=== PATIENT | female | born 1990 | race African-American/Black ===

== ENCOUNTER 2021-06-20 13:35 | Outpatient (CLI) | payer OTHER, SELFPAY ==
--- NOTE | ~2021-06-20 | US_ITS ---
EXAMINATION: US pelvic complete w TV DATE: 06/20/2021 14:33 INDICATION: Irregular menstruation, unspecified. TECHNIQUE: Multiple transabdominal and transvaginal sonographic images of the pelvis were obtained. COMPARISON: None. FINDINGS: TRANSABDOMINAL ULTRASOUND: The uterus measures 7.6 x 4.0 x 3.5 cm. There is no free fluid in the pelvis. TRANSVAGINAL ULTRASOUND: The endometrial complex measures 6 mm in thickness. The right ovary measures 2.8 x 3.8 x 2.7 cm. The left ovary measures 6.1 x 2.6 x 3.0 cm. There is normal vascular flow in the ovaries. IMPRESSION: 1. Enlargement of left ovary of uncertain significance. Reviewed, dictated and finalized at location [facility]. [facility]
== END 2021-06-20 13:36 | disposition home or self-care (01) ==
PROVIDERS: PCP Emergency Medicine; Visit Provider Student in an Organized Health Care Education/Training Program
DX: E28.2 Polycystic ovarian syndrome (principal); N92.6 Irregular menstruation, unspecified; N83.8 Other noninflammatory disorders of ovary, fallopian tube and broad ligament
CPT/HCPCS: 76830; 76856

== ENCOUNTER 2024-09-02 12:32 | Emergency (ER) | payer BC, SELFPAY ==
[2024-09-02 12:54] VITALS: BP 102/82; PULSE 88; RESP 16; TEMP 36.8; O2SAT 100
[2024-09-02 12:56] LABS: EDSTREPNEGPOS1 Negative (Negative)
[2024-09-02 12:58] LABS: EDINFLUASCREEN Negative (Negative); EDINFLUBSCREEN Negative (Negative)
[2024-09-02 12:59] LABS: EDCOVIDSCREEN Negative (Negative)
--- NOTE | 2024-09-02 13:08 | ED_ITS ---
HPI - General Adult General Chief complaint: Upper Respiratory Infection Stated complaint: Flu Symptoms Source: patient Mode of arrival: ambulatory Limitations: no limitations History of Present Illness HPI narrative: PATIENT PRESENTS FOR EVALUATION OF SICK SYMPTOMS. SYMPTOM ONSET 3 DAYS AGO. SYMPTOMS INCLUDE FEVER, COUGH, SINUS CONGESTION, NASAL DRAINAGE, SORE THROAT, BODY ACHES AND GENERALLY NOT FEELING WELL. SHE DENIES ANY SHORTNESS OF, NAUSEA, OR DIARRHEA. SHE HAS HAD A FEW EPISODES OF VOMITING DURING COUGHING EPISODES. 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 SHE TRIED TAKING MUCINEX COLD AND SINUS FOR HER SYMPTOMS. SHE DOES NOT SMOKE. Related Data Home Medications ?Medication ?Instructions ?Recorded ?Confirmed ?Last Taken ?Type irbesartan 75 mg tablet 75 mg PO DAILY 06/13/21 Unknown History tirzepatide 2.5 mg/0.5 mL 2.5 mg subcut WEEKLY 09/02/24 09/02/24 Unknown History subcutaneous pen injector (Mounjaro) Allergies Allergy/AdvReac Type Severity Reaction Status Date / Time No Known Allergies Allergy Verified 09/02/24 12:39 Review of Systems Review of Systems: CONSTITUTIONAL: REPORTS FEVER. DENIES CHILLS, OR SWEATS. EYES: DENIES VISUAL CHANGES, REDNESS, OR DISCHARGE. ENT: REPORTS SINUS CONGESTION, POSTNASAL DRAINAGE, SORE THROAT AND BILATERAL OTALGIA CARDIOVASCULAR: DENIES CHEST PAIN, PALPITATIONS, OR EDEMA. RESPIRATORY: REPORTS COUGH. DENIES SHORTNESS OF GASTROINTESTINAL: REPORTS A FEW EPISODES OF VOMITING DURING COUGHING EPISODES. DENIES ABDOMINAL PAIN, NAUSEA, OR DIARRHEA. GENITOURINARY: DENIES DYSURIA OR HEMATURIA. SKIN: DENIES RASH OR ITCHING. MUSCULOSKELETAL: REPORTS GENERALIZED BODY ACHES NEUROLOGIC: DENIES HEADACHE, NUMBNESS, DIZZINESS, OR WEAKNESS. PSYCHIATRIC: DENIES ANXIETY OR DEPRESSION. [facility] Past Medical History Medical History HSV (herpes simplex virus) anogenital infection Depression with anxiety Hyperlipidemia Type II diabetes mellitus Surgical History Surgical History No pertinent past surgical history Family History Family History Mother Alcoholism Hypertension Depression Grandparent Diabetes mellitus Hypertension Social History Social History Smoking status: Never smoker Alcohol intake: current Substance use: never Lack of Transportation: No Lack of Food: Never True Current Housing: I Have Housing Concerned About Future Housing: No Difficulty Paying Gas/Electric Bills: No Difficulty Paying for Meds: No Currently Unemployed: No Education: Associate Degree Living arrangements: alone Occupation/Education: occupation Gender identity (if verbalized by the patient): Female Sexual Orientation (if Verbalized by the Patient): Lesbian, Gray, or Homosexual Exam Narrative: GENERAL: WELL-APPEARING, WELL-NOURISHED, AND IN NO ACUTE DISTRESS. HEAD: NORMOCEPHALIC, ATRAUMATIC. EYES: PERRLA AND EOMI. ENT: NARES CLEAR, NO RHINORRHEA OR EPISTAXIS. MUCOUS MEMBRANES MOIST. OROPHARYNX WITHOUT TONSILLAR HYPERTROPHY EXUDATE OR OTHER LESIONS. BILATERAL TMS PEARLY RANKIN NONBULGING NECK: SUPPLE. NO ADENOPATHY OR MASSES. NO CAROTID BRUITS OR JVD CHEST: CLEAR TO AUSCULTATION. NO RESPIRATORY DISTRESS. NO WHEEZES RALES OR RHONCHI HEART: REGULAR RATE AND RHYTHM. NO MURMUR HEARD. NORMAL PERIPHERAL PULSES. ABDOMEN: SOFT, NONTENDER, NONDISTENDED, NORMAL ACTIVE BOWEL SOUNDS. EXTREMITIES: NORMAL RANGE OF MOTION. NO EDEMA. SKIN: WARM, DRY, NO RASH. NEURO: NO FOCAL DEFICITS. ALERT AND ORIENTED X3. PSYCH: NORMAL MOOD AND AFFECT. Course Course Emergency Course: THIS IS A 34-YEAR-OLD FEMALE WHO PRESENTED FOR EVALUATION OF SICK SYMPTOMS. COVID, INFLUENZA, STREP WERE NEGATIVE. SYMPTOMS ARE CONSISTENT WITH ACUTE VIRAL SYNDROME. INCREASE HYDRATION. OTC AGENTS FOR SYMPTOM MANAGEMENT. FOLLOW UP WITH PRIMARY PROVIDER. GO TO THE ER FOR WORSENING SYMPTOMS. PT IN AGREEMENT WITH PLAN OF CARE. Level of Care: Express Care Visit Vital Signs Vital signs: Vital Signs Temperature 36.8 C 09/02/24 12:54 Pulse Rate 88 09/02/24 12:54 Respiratory Rate 16 09/02/24 12:54 Blood Pressure 102/82 09/02/24 12:54 Pulse Oximetry 100 09/02/24 12:54 Temperature 36.8 C 09/02/24 12:54 Pulse Rate 88 09/02/24 12:54 Respiratory Rate 16 09/02/24 12:54 Blood Pressure 102/82 09/02/24 12:54 Pulse Oximetry 100 09/02/24 12:54 Medical Decision Making Vital Signs Vital Signs: Vital Signs Temperature 36.8 C 09/02/24 12:54 Pulse Rate 88 09/02/24 12:54 Respiratory Rate 16 09/02/24 12:54 Blood Pressure 102/82 09/02/24 12:54 Pulse Oximetry 100 09/02/24 12:54 Temperature 36.8 C 09/02/24 12:54 Pulse Rate 88 09/02/24 12:54 Respiratory Rate 16 09/02/24 12:54 Blood Pressure 102/82 09/02/24 12:54 Pulse Oximetry 100 09/02/24 12:54 Lab Data Labs: Lab Results 09/02/24 09/02/24 09/02/24 Range/Units 12:54 12:56 12:57 POC Influenza A Ag Negative (Negative) POC Influenza B Ag Negative (Negative) POC SARS CoV-2 Ag Negative (Negative) POC Grp A Strep Screen Negative (Negative) Discharge Plan Discharge Clinical Impression: Acute viral syndrome Patient Disposition: Home, Self-Care Condition: Stable Instructions: Antibiotic Form, Viral Syndrome (ED) Additional Instructions: THE FOLLOWING MEDICATIONS MAY HELP YOUR SYMPTOMS: CEPACOL-SORE THROAT BODY ACHES-IBUPROFEN AND TYLENOL COUGH-DEXTROMETHORPHAN Patient Language: Serbian Prescriptions: No Action Mounjaro 2.5 mg/0.5 mL pen injector 2.5 mg subcut WEEKLY Rx Instructions: for 4 weeks irbesartan 75 mg tablet 75 mg PO DAILY Follow-up/Referrals: Eliecer Gonzalez MD [Primary Care Provider] - Stand Alone Forms: Work/School Release IP Time of Disposition: 13:06
== END 2024-09-02 13:10 | disposition home or self-care (01) ==
PROVIDERS: Emergency Provider Nurse Practitioner; PCP Emergency Medicine
DX: B34.9 Viral infection, unspecified (principal); E11.9 Type 2 diabetes mellitus without complications; Z20.822 Contact with and (suspected) exposure to COVID-19
CPT/HCPCS: 87081; 87426; 87804; 87880; 99213; G0463